=== PATIENT | female | born 1955 | race African-American/Black ===

== ENCOUNTER 2018-01-05 11:02 | Outpatient (CLI) | payer MEDICARE, MEDICAID ==
--- NOTE | 2018-01-05 12:18 | RAD ---
2 VIEWS CHEST: Date: 01/05/18 COMPARISON: 11/28/14. HISTORY: Congestion and cough. FINDINGS: Two views of the chest show an enlarged but stable cardiomediastinal silhouette. The patient is statu s post sternotomy. There is no evidence of consolidation, mass, or pleural effusion. IMPRESSION: No evidence of acute cardiopulmonary disease. POS: [facility]
== END 2018-01-05 11:03 | disposition home or self-care (01) ==
LOC: SCSRAD 11:02
PROVIDERS: ATTEND Nurse Practitioner Family
DX: J40 Bronchitis, not specified as acute or chronic (principal); R05 Cough
CPT/HCPCS: 71046